=== PATIENT | female | born 1980 | race Caucasian/White ===

== ENCOUNTER 2017-03-18 07:38 | Emergency (ER) | payer OTHER ==
[2017-03-18 07:45] VITALS: BP 133/111; PULSE 89; RESP 17; TEMP 98.1; O2SAT 95
--- NOTE | 2017-03-18 08:22 | EDPHY ---
General Time Seen by Provider: 03/18/17 07:59 Narrative: CHIEF COMPLAINT: Needle stick HISTORY OF PRESENT ILLNESS: Patient reports needlestick to her right finger this morning. She was discarding and a used insulin needle when it struck her in the right finger. Did note some bleeding that was minimal. 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 She put a Band-Aid on it. The patient does not have any known HIV, hepatitis or communicable diseases. She medially notified her billing supervisor informed her that she should come to the emergency department. She has no complaints of pain. She is up-to-date on her tetanus. She has no diagnosis of HIV or hepatitis. She is up-to-date on her hepatitis B vaccination. No other associated complaints or modifying factors. REVIEW OF SYSTEMS: Ten systems reviewed and are negative unless otherwise noted in the HPI PCP: None SPECIALISTS: None PAST MEDICAL HISTORY: None PAST SURGICAL HISTORY: None SOCIAL HISTORY: Nonsmoker. 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 Brisk cap refill in all 5 fingers of the hand. Pulses intact distally Neurological: A&O, nonfocal, normal gait Skin: Warm and dry, no rash. Pinpoint bleeding at the base of the right finger. No active bleeding. No ecchymosis. Brisk cap refill. Extremities: Nontender, no pedal edema Psychiatric: Mood and affect normal DIFFERENTIAL DIAGNOSES: Including but not limited to needlestick MDM: 8:22 a.m. Needle stick from used insulin needle. Patient does not have any known HIV or hepatitis. Nor does the source per patient. The initial needle stick baseline blood draw all laboratory studies have been obtained. This includes HIV, hep B and hep C. He will be discharged home with instructions to contact her [facility] and billing supervisor for further care. She will need repeat laboratory studies. She has declined any HIV PEP prophylaxis. She is discharged stable condition. - History Smoking Status: Current every day smoker - Objective Vital Signs: Initial Vital Signs Temperature (C) 98.1 F 03/18/17 07:42 Heart Rate 89 03/18/17 07:42 Respiratory Rate 17 03/18/17 07:42 Blood Pressure 133/111 H 03/18/17 07:42 O2 Sat (%) 95 03/18/17 07:42 O2 Delivery Mode Room Air Allergies/Adverse Reactions: No Known Allergies Allergy (Verified 03/18/17 07:45) Home Medications: Medication Instructions Recorded NK [No Known Home Meds] 03/18/17 Laboratory Results: Laboratory Results 03/18/17 08:30 03/18/17 08:30 03/18/17 03/18/17 03/18/17 08:30 08:30 08:30 WBC 11.65 10^3/uL H 10^3/uL (3.80-9.50) RBC 4.52 10^6/uL 10^6/uL (4.18-5.33) Hgb 13.2 g/dL g/dL (12.6-16.3) Hct 38.4 % % (38.0-47.0) MCV 85.0 fL fL (81.5-99.8) MCH 29.2 pg pg (27.9-34.1) MCHC 34.4 g/dL g/dL (32.4-36.7) RDW 12.8 % % (11.5-15.2) Plt Count 339 10^3/uL 10^3/uL (150-400) Sodium 141 mEq/L mEq/L (134-144) Potassium 4.0 mEq/L mEq/L (3.5-5.2) Chloride 104 mEq/L mEq/L (97-110) Carbon Dioxide 24 mEq/l mEq/l (22-31) Anion Gap 13 mEq/L mEq/L (8-16) BUN 12 mg/dL mg/dL (7-23) Creatinine 0.6 mg/dL mg/dL (0.6-1.0) Estimated GFR > 60 Glucose 89 mg/dL mg/dL (70-100) Calcium 9.6 mg/dL mg/dL (8.5-10.4) Total Bilirubin 0.6 mg/dL mg/dL (0.1-1.4) Conjugated Bilirubin 0.3 mg/dL mg/dL (0.0-0.5) Unconjugated Bilirubin 0.3 mg/dL mg/dL (0.0-1.1) AST 26 IU/L IU/L (14-46) ALT 34 IU/L IU/L (9-52) Alkaline Phosphatase 90 IU/L IU/L (38-126) Total Protein 8.4 g/dL H g/dL (6.3-8.2) Albumin 4.7 g/dL g/dL (3.5-5.0) Hep Bs Antibody Pending Hepatitis C Antibody Pending HIV 1&2 Antibody Pending Departure - Departure Disposition: Home, Routine, Self-Care Clinical Impression: Needle stick injury of finger of right hand Qualifiers: Encounter type: initial encounter Qualified Code(s): S61.239A - Puncture wound without foreign body of unspecified finger without damage to nail, initial encounter Condition: Good Instructions: Needle Stick Injuries (ED) Additional Instructions: 1. Follow up with [facility] clinic for repeat laboratory studies, patient blood draw, prophylaxis 2. ED precautions as discussed Referrals: NONE *PRIMARY CARE P,. [Primary Care Provider] - As per Instructions Ayaz Salinas MD [Medical Doctor] - As per Instructions Stand Alone Forms: Work Comp Follow Up
[2017-03-18 08:37] LABS: HEMATOCRIT 38.4 % (38.0-47.0); HEMOGLOBIN 13.2 g/dL (12.6-16.3); MEAN CELL HEMOGLOBIN 29.2 pg (27.9-34.1); MEAN CELL HEMOGLOBIN CONCENTR. 34.4 g/dL (32.4-36.7); RED BLOOD CELL COUNT 4.52 10^6/uL (4.18-5.33); RED CELL DISTRIBUTION WIDTH 12.8 % (11.5-15.2)
[2017-03-18 09:04] LABS: ALANINE AMINOTRANSFERASE 34 IU/L (9-52); ALBUMIN 4.7 g/dL (3.5-5.0); ALKALINE PHOSPHATASE 90 IU/L (38-126); ANION GAP 13 mEq/L (8-16); ASPARTATE AMINOTRANSFERASE 26 IU/L (14-46); BILIRUBIN,TOTAL 0.6 mg/dL (0.1-1.4); BILIRUBIN-CONJUGATED 0.3 mg/dL (0.0-0.5); BILIRUBIN-UNCONJUGATED 0.3 mg/dL (0.0-1.1); CALCIUM 9.6 mg/dL (8.5-10.4); CARBON DIOXIDE 24 mEq/l (22-31); CHLORIDE 104 mEq/L (97-110); CREATININE 0.6 mg/dL (0.6-1.0); GLOMERULAR FILTRATION RATE > 60; GLUCOSE 89 mg/dL (70-100); SODIUM 141 mEq/L (134-144); TOTAL PROTEIN 8.4 g/dL (6.3-8.2)
[2017-03-19 02:00] LABS: HEPATITIS B SURFACE ANTIBODY NEGATIVE (NEGATIVE)
== END 2017-03-18 08:42 | disposition home or self-care (01) ==
DX: S61.239A Puncture wound without foreign body of unspecified finger without damage to nail, initial encounter (principal); W46.0XXA Contact with hypodermic needle, initial encounter
CPT/HCPCS: G0472

== ENCOUNTER 2017-09-17 14:15 | Emergency (ER) | payer OTHER | END 2017-09-17 14:30 | disposition left against medical advice (07) | DX: Z53.21 Procedure and treatment not carried out due to patient leaving prior to being seen by health care provider (principal) ==